=== PATIENT | female | born 1990 | race Caucasian/White ===

== ENCOUNTER 2020-04-17 01:42 | Inpatient (IN) | payer BC ==
[2020-04-17] MEDS ORDERED: Sodium Chloride 0.9% 2.5 ML Syringe FLUSH PRN (19:40)
[2020-04-17] MEDS ORDERED: Misoprostol 25 MCG (1/4 of 100 MCG) Tab VAG PRN (19:40)
[2020-04-17] MEDS ORDERED: Misoprostol 200 MCG Tab PO PRN (19:40)
[2020-04-17] MEDS ORDERED: Lidocaine 1% 50 ML MDV INJECT PRN (19:40)
[2020-04-17] MEDS ORDERED: Ondansetron 4 MG/2 ML SDV IVPUSH PRN (19:40)
[2020-04-17] MEDS ORDERED: Terbutaline 1 MG/ML SDV SUBCUT PRN (19:40)
[2020-04-17] MEDS ORDERED: Tranexamic Acid 1,000 MG in Sodium Chloride 0.9% 100 ML IV PRN (19:40)
[2020-04-17] MEDS ORDERED: Sodium Chloride 0.9% 10 ML SDV IV PRN (19:40)
[2020-04-17] MEDS ORDERED: Methylergonovine 0.2 MG/1 ML Amp IM PRN (19:40)
[2020-04-17] MEDS ORDERED: Sodium Chloride 0.9% 10 ML Syringe FLUSH PRN (19:40)
[2020-04-17] MEDS ORDERED: Water For Irrigation,Sterile 1,000 ML Container IRR PRN (19:40)
[2020-04-17] MEDS ORDERED: Carboprost Tromethamine 250 MCG/1 ML Amp IM PRN (19:40)
[2020-04-17] MEDS ORDERED: Nalbuphine 10 MG/1 ML Vial IVPUSH PRN (19:40)
[2020-04-17] MEDS ORDERED: Oxytocin/0.9 % Sodium Chloride 30 UNIT/500 ML BAG IV SCH ×2 (19:45)
[2020-04-17] MEDS: Misoprostol 25 MCG (1/4 of 100 MCG) Tab VAG PRN (22:43)
[2020-04-18] MEDS: Misoprostol 25 MCG (1/4 of 100 MCG) Tab VAG PRN ×2 (04:44→08:49)
[2020-04-18] MEDS: Lactated Ringers 1,000 ML IV SCH ×3 (11:43→20:08)
[2020-04-18] MEDS: Butorphanol 1 MG/ML SDV IVPUSH PRN ×2 (14:28→16:49)
[2020-04-18] MEDS ORDERED: fentaNYL 100 MCG/2 ML SDV ONE (19:16)
[2020-04-18] MEDS ORDERED: Ropivacaine HCl/PF 100 ML ONE (19:16)
--- NOTE | 2020-04-18 19:40 | PCM.PREANE ---
Preanesthetic Assessment - Anesthesia/Transfusion/Family Hx Anesthesia History: Prior Anesthesia Without Reaction Family History of Anesthesia Reaction: No Transfusion History: No Prior Transfusion(s) Type of Transfusion Reactions: Reports: Unknown - Review of Systems Neurological: Weakness (Hx MS) - Physical Assessment NPO Status Date: 04/18/20 NPO Status Time: 08:00 Height: 1.75 m Weight: 142.882 kg ASA Class: 2 Thyro-Mental Finger Breadths: 3 Mouth Opening Finger Breadths: 3 - Lab Values: Laboratory Last Values WBC 9.74 K/uL (4.0-11.0) 04/17/20 22:09 RBC 4.03 M/uL (4.30-5.90) L 04/17/20 22:09 Hgb 12.3 g/dL (12.0-16.0) 04/17/20 22:09 Hct 36.7 % (36.0-46.0) 04/17/20 22:09 MCV 91.1 fL (80.0-98.0) 04/17/20 22:09 MCH 30.5 pg (27.0-32.0) 04/17/20 22:09 MCHC 33.5 g/dL (31.0-37.0) 04/17/20 22:09 RDW Std Deviation 46.4 fl (28.0-62.0) 04/17/20 22:09 RDW Coeff of Ena 14 % (11.0-15.0) 04/17/20 22:09 Plt Count 239 K/uL (150-400) 04/17/20 22:09 MPV 10.90 fL (7.40-12.00) 04/17/20 22:09 Nucleated RBC % 0.0 /100WBC 04/17/20 22:09 Nucleated RBCs # 0 K/uL 04/17/20 22:09 Membrane Rupture POSITIVE 04/18/20 16:40 SARS-CoV-2 RNA (TAVO) NEGATIVE (NEGATIVE) 04/17/20 19:30 Blood Type A NEGATIVE 04/17/20 22:09 Antibody Screen NEGATIVE 04/17/20 22:09 - Allergies Allergies/Adverse Reactions: Allergies Allergy/AdvReac Type Severity Reaction Status Date / Time No Known Allergies Allergy Verified 08/11/17 19:28 - Acknowledgements Anesthesia Type Planned: Epidural Pt an Appropriate Candidate for the Planned Anesthesia: Yes Alternatives and Risks of Anesthesia Discussed w Pt/Guardian: Yes Pt/Guardian Understands and Agrees with Anesthesia Plan: Yes PreAnesthesia Questionnaire - Past Health History Medical/Surgical History: Denies Medical/Surgical History HEENT History: Reports: None Cardiovascular History: Reports: None Respiratory History: Reports: None Gastrointestinal History: Reports: None Genitourinary History: Reports: None OPERATOR VACUUM History: Reports: None Musculoskeletal History: Reports: None Neurological History: Reports: MS Psychiatric History: Reports: None Endocrine/Metabolic History: Reports: None Hematologic History: Reports: None Immunologic History: Reports: None Oncologic (Cancer) History: Reports: None Dermatologic History: Reports: None - Infectious Disease History Infectious Disease History: Reports: Chicken Pox - Past Surgical History Head Surgeries/Procedures: Reports: None Cardiovascular Surgical History: Reports: None Respiratory Surgical History: Reports: None GI Surgical History: Reports: None Female Surgical History: Reports: None Endocrine Surgical History: Reports: None Neurological Surgical History: Reports: None Musculoskeletal Surgical History: Reports: None Oncologic Surgical History: Reports: None Dermatological Surgical History: Reports: None - SUBSTANCE USE Tobacco Use Status *Q: Never Tobacco User Second Hand Smoke Exposure: No Recreational Drug Use History: Yes Recreational Drug Type: Reports: Marijuana/Hashish - HOME MEDS Home Medications: Home Meds Control 08/11/17 [History] Cetirizine HCl [Zyrtec] 10 mg PO DAILY 08/11/17 [History] metFORMIN [Glucophage XR] 500 mg PO BIDMEALS 08/11/17 [History] Aspirin 04/17/20 [History] Biotin 04/17/20 [History] Cyanocobalamin (Vitamin B12) [Vitamin B12] 04/17/20 [History] Cyanocobalamin/Folic Acid [Vitamin J69-Sqaia Acid] 04/17/20 [History] Folic Acid 04/17/20 [History] Pnv #30/Iron Carb&Aspg/Fa/Om3 [OB Complete with DHA Softgel] 04/17/20 [History] Vit D3/Vit K2/Calc Frutoborate [Move Free Agfkq-[id number]-K6-D3] 04/17/20 [History] - CURRENT (IN HOUSE) MEDS Current Meds: Current Medications Butorphanol Tartrate (Stadol) 1 mg IVPUSH Q1H PRN PRN Reason: Pain Last Admin: 04/18/20 16:49 Dose: 1 mg Documented by: Carboprost Tromethamine (Hemabate Ds) 250 mcg IM ASDIRECTED PRN PRN Reason: Post Hemorrhage Oxytocin/Sodium Chloride (Oxytocin 30 Unit/500 Ml-Ns) 30 unit in 500 mls @ 999 mls/hr IV TITRATE IVORY Tranexamic Acid 1,000 mg/ (Sodium Chloride) 110 mls @ 660 mls/hr IV ONETIME PRN PRN Reason: Bleeding Oxytocin/Sodium Chloride (Oxytocin 30 Unit/500 Ml-Ns) 30 unit in 500 mls @ 2 mls/hr IV TITRATE IVORY; Protocol Last Titration: 04/18/20 14:00 Dose: 12 munits/min, 12 mls/hr Documented by: Lactated Ringer's (Ringers, Lactated) 1,000 mls @ 150 mls/hr IV ASDIRECTED IVORY Last Admin: 04/18/20 16:54 Dose: 150 mls/hr Documented by: Lidocaine HCl (Xylocaine 1%) 50 ml INJECT ONETIME PRN PRN Reason: Laceration repair Methylergonovine Maleate (Methergine) 0.2 mg IM ASDIRECTED PRN PRN Reason: Post Hemorrhage Misoprostol (Cytotec) 200 mcg PO ONETIME PRN PRN Reason: Post Hemorrhage Misoprostol (Cytotec) 25 mcg VAG ONETIME PRN PRN Reason: Cervical Ripening Misoprostol (Cytotec) 25 mcg VAG Q4H PRN PRN Reason: Cervical Ripening Last Admin: 04/18/20 08:49 Dose: 25 mcg Documented by: Nalbuphine HCl (Nubain) 10 mg IVPUSH Q1H PRN PRN Reason: Pain (severe 7-10) Ondansetron HCl (Zofran) 4 mg IVPUSH Q6H PRN PRN Reason: Nausea/Vomiting Last Admin: 04/18/20 15:55 Dose: 4 mg Documented by: Sodium Chloride (Saline Flush) 10 ml FLUSH ASDIRECTED PRN PRN Reason: Keep Vein Open Sodium Chloride (Saline Flush) 2.5 ml FLUSH ASDIRECTED PRN PRN Reason: Keep Vein Open Sodium Chloride (Normal Saline) 10 ml IV ASDIRECTED PRN PRN Reason: IV Use Sterile Water (Sterile Water For Irrigation) 1,000 ml IRR ASDIRECTED PRN PRN Reason: delivery Terbutaline Sulfate (Brethine) 0.25 mg SUBCUT ASDIRECTED PRN PRN Reason: Tacysystole Discontinued Medications Fentanyl (Sublimaze) Confirm Administered Dose 100 mcg .ROUTE .STBest Teacher-MED ONE Stop: 04/18/20 19:17 Ropivacaine (Naropin 0.2%) Confirm Administered Dose 100 mls @ as directed .ROUTE .STBest Teacher-MED ONE Stop: 04/18/20 19:17
--- NOTE | 2020-04-18 19:44 | PCM.PRNOTE ---
- Free Text/Narrative Note: Anes Note Patient requests epidural for L&D. Sitting position. Level L3-L4 midline approach. Sterile technique. Chloraprep scrub to lumbar area. Sitting position. Sterile fenestrated drape applied. Epidural space easily achieved single attempt with ease using POOJA technique. POOJA at 5 cm. Cath threaded 6 cm with ease. Cath secured at skin using sterile clear adhesive dressing. 193 test 3 cc 1.5% lido with epi negative. 1934 LOad 10 cc 0.2% ropiviciane with 1 mcg cc fentanyl in slow divided doses. 1941 Pump started with 90 c same solution. Rate is 8 cc hr with 6 cc q 20 min bolus. Sterling well. Abdirizak with patient [phone] Evan Melgar EDUCATIONAL INTERPRETER
[2020-04-19] MEDS ORDERED: Benzocaine/Menthol 20%-0.5% Spray 78 GM Cannister TOP PRN (02:07)
[2020-04-19] MEDS ORDERED: Witch Hazel Medicated Pads 40/Jar TOP PRN (02:07)
[2020-04-19] MEDS ORDERED: oxyCODONE 5 MG Tab PO PRN (02:07)
[2020-04-19] MEDS ORDERED: Ibuprofen 400 MG Tab PO PRN (02:07)
[2020-04-19] MEDS ORDERED: Bisacodyl 10 MG Supp RECTAL PRN (02:07)
[2020-04-19] MEDS ORDERED: Lanolin 100% Cream 7 GM Tube TOP PRN (02:07)
[2020-04-19] MEDS ORDERED: Acetaminophen 500 MG Tab PO PRN ×2 (02:07)
--- NOTE | 2020-04-19 02:17 | PCM.OPNOTE ---
- General Post-Op/Procedure Note Date of Surgery/Procedure: 04/19/20 Operative Procedure(s): /2nd MLE repaired Findings: Viable female APGARs 8, 9 weight 4590 gm. Spontaneous delivery intact placenta with 3V cord Pre Op Diagnosis: 39/5 week IUP. Elective IOL-maternal obesity Post-Op Diagnosis: Same Anesthesia Technique: Epidural Primary Surgeon: Nancy Martin EBL in mLs: 250 Complications: none known Condition: Good Free Text/Narrative:: Dictation [id number]
[2020-04-19] MEDS: Docusate Sodium 100 MG Cap PO PRN ×2 (06:49→20:14)
--- NOTE | 2020-04-19 07:17 | PCM48HPAN ---
Post Anesthesia Note - EVALUATION WITHIN 48HRS OF ANESTHETIC Vital Signs in Normal Range: Yes Patient Participated in Evaluation: Yes Respiratory Function Stable: Yes Airway Patent: Yes Cardiovascular Function Stable: Yes Hydration Status Stable: Yes Pain Control Satisfactory: Yes Nausea and Vomiting Control Satisfactory: Yes Mental Status Recovered: Yes Vital Signs: Last Vital Signs Temp 36.3 C 04/19/20 04:34 Pulse 81 04/19/20 04:34 Resp 18 04/19/20 04:34 BP 119/80 04/19/20 04:34 Pulse Ox 91 L 04/19/20 04:34
[2020-04-19] MEDS: Ibuprofen 800 MG Tab PO PRN ×2 (08:35→20:14)
--- NOTE | 2020-04-19 09:56 | OR ---
SURGEON: Nancy Martin M.D. DATE OF PROCEDURE: 04/19/2020 PREOPERATIVE DIAGNOSES: 1. 39 and 5/7 week intrauterine . 2. Elective induction of labor for maternal obesity. POSTOPERATIVE DIAGNOSES: 1. 39 and 5/7 week intrauterine . 2. Elective induction of labor for maternal obesity. PROCEDURES: Spontaneous vaginal delivery, second-degree midline episiotomy repair. PRIMARY SURGEON: Nancy Martin M.D. ANESTHESIA: Epidural. ESTIMATED BLOOD LOSS: 250 mL. COMPLICATIONS: None known. FINDINGS: Viable female, score 8 at one minute and 9 at five minutes. Weight of 4590 g. Spontaneous delivery, intact placenta with 3-vessel cord. DISPOSITION: to nursery, Mom in LDRP. PROCEDURE DETAILS: Domenica is a 29-year-old G1, P0, at 39 and 3/7 weeks gestational age upon presentation for elective induction of labor. She was initially evaluated. Category 1 heart tones were observed and was found to be fingertip thick and -3 station, therefore, initiated on Cytotec ripening. Underwent 3 doses of Cytotec. By the following morning, was found to be 3 cm, 60% effaced at -2 station, therefore transitioned to Pitocin. Made slow progress through the afternoon hours of 04/18/2020, had spontaneous rupture of membranes shortly before 2 p.m. On the early evening of 04/19/2020, she was found to have forebag. This was ruptured with an IUPC placed. The patient was becoming increasingly uncomfortable at this juncture and underwent regional anesthesia in the form of epidural, became more comfortable and continued to progress more rapidly thereafter. Shortly after midnight, she was found to be complete, 100% effaced, +1 station, began pushing efforts, pushed for approximately 45 minutes, and I was called for delivery. Upon my arrival, patient was placed in modified dorsal lithotomy position, was prepped and draped in usual aseptic manner. Continued with pushing efforts, was able to deliver to a +3 station. The perineum was very tight, and with pushing efforts, difficulty delivering past the perineum with heart tones decelerating into the 60s; therefore, an episiotomy was created, and with the next contraction, the patient was able to deliver infant's head atraumatically spontaneously, followed by anterior shoulder, posterior shoulder, and remainder of body. Loose nuchal cord x1 was reduced manually. 's oropharynx and nares were bulb suctioned. Infant was handed off to her mother with attending nursing staff at her side. After a delay, cord was clamped x2 and cut. Cord arterial, cord venous, cord blood sampling obtained. Light pressure was applied while the placenta was delivered spontaneously intact. Vigorous fundal uterine massage was then applied while 30 units of Pitocin delivered in 500 mL of IV fluid. Upon inspection of cervix, vaginal sidewalls, and perineum, there was found to be second-degree midline episiotomy. This was repaired using 3-0 Vicryl in the usual fashion. Hemostasis appeared evident. Sponge count, instrument count, needle count was correct. The patient remained in LDRP, to nursery. MYKEL / ESA /[id number]
[2020-04-20] MEDS: Ibuprofen 800 MG Tab PO PRN (08:05)
[2020-04-20] MEDS: Docusate Sodium 100 MG Cap PO PRN (08:05)
--- NOTE | 2020-04-20 08:21 | PCM.PNPP ---
- General Info Date of Service: 04/20/20 Subjective Update: Resting comfortably in bed, holding infant. Pain well controlled. Lochia decreasing. Ambulating and voiding without difficulty. with formula supplementation. - General Info Date of Service: 04/20/20 - Patient Data Vital Signs - Most Recent: Last Vital Signs Temp 97.9 F 04/20/20 07:57 Pulse 80 04/20/20 07:57 Resp 18 04/20/20 07:57 BP 112/68 04/20/20 07:57 Pulse Ox 98 04/20/20 07:57 Weight - Most Recent: 315 lb Lab Results - Last 24 Hours: Laboratory Results - last 24 hr 04/19/20 04/20/20 Range/Units 02:40 06:15 Hgb 11.7 L (12.0-16.0) g/dL Hct 35.4 L (36.0-46.0) % Antibody Screen NEGATIVE Screen NEGATIVE (NEGATIVE) RhIG Candidate? YES Rhogam Indicated YES, BABY RH POS H Med Orders - Current: Current Medications Acetaminophen (Tylenol Extra Strength) 500 mg PO Q4H PRN PRN Reason: Pain Acetaminophen (Tylenol Extra Strength) 1,000 mg PO Q4H PRN PRN Reason: Pain Last Admin: 04/19/20 08:36 Dose: 1,000 mg Documented by: Benzocaine/Menthol (Dermoplast Pain Relief 20%-0.5% [place]) 78 gm TOP ASDIRECTED PRN PRN Reason: Perineal Comfort Measure Last Admin: 04/19/20 03:45 Dose: 1 canister Documented by: Bisacodyl (Dulcolax) 10 mg RECTAL ONETIME PRN PRN Reason: Constipation Butorphanol Tartrate (Stadol) 1 mg IVPUSH Q1H PRN PRN Reason: Pain Last Admin: 04/18/20 16:49 Dose: 1 mg Documented by: Carboprost Tromethamine (Hemabate Ds) 250 mcg IM ASDIRECTED PRN PRN Reason: Post Hemorrhage Docusate Sodium (Colace) 100 mg PO BID PRN PRN Reason: Constipation Last Admin: 04/20/20 08:05 Dose: 100 mg Documented by: Emollient Ointment (Lansinoh Hpa) 0 gm TOP ASDIRECTED PRN PRN Reason: Sore Nipples Last Admin: 04/19/20 03:44 Dose: 7 gm Documented by: Oxytocin/Sodium Chloride (Oxytocin 30 Unit/500 Ml-Ns) 30 unit in 500 mls @ 999 mls/hr IV TITRATE IVORY Tranexamic Acid 1,000 mg/ (Sodium Chloride) 110 mls @ 660 mls/hr IV ONETIME PRN PRN Reason: Bleeding Oxytocin/Sodium Chloride (Oxytocin 30 Unit/500 Ml-Ns) 30 unit in 500 mls @ 2 mls/hr IV TITRATE IVORY; Protocol Last Titration: 04/19/20 01:42 Dose: 999 munits/min, 999 mls/hr Documented by: Lactated Ringer's (Ringers, Lactated) 1,000 mls @ 150 mls/hr IV ASDIRECTED IVORY Last Infusion: 04/19/20 01:42 Dose: 0 mls/hr Documented by: Ibuprofen (Motrin) 400 mg PO Q4H PRN PRN Reason: Pain Ibuprofen (Motrin) 800 mg PO Q6H PRN PRN Reason: Pain Last Admin: 04/20/20 08:05 Dose: 800 mg Documented by: Lidocaine HCl (Xylocaine 1%) 50 ml INJECT ONETIME PRN PRN Reason: Laceration repair Methylergonovine Maleate (Methergine) 0.2 mg IM ASDIRECTED PRN PRN Reason: Post Hemorrhage Misoprostol (Cytotec) 200 mcg PO ONETIME PRN PRN Reason: Post Hemorrhage Misoprostol (Cytotec) 25 mcg VAG ONETIME PRN PRN Reason: Cervical Ripening Misoprostol (Cytotec) 25 mcg VAG Q4H PRN PRN Reason: Cervical Ripening Last Admin: 04/18/20 08:49 Dose: 25 mcg Documented by: Nalbuphine HCl (Nubain) 10 mg IVPUSH Q1H PRN PRN Reason: Pain (severe 7-10) Ondansetron HCl (Zofran) 4 mg IVPUSH Q6H PRN PRN Reason: Nausea/Vomiting Last Admin: 04/18/20 15:55 Dose: 4 mg Documented by: Oxycodone HCl (Oxycodone) 5 mg PO Q2H PRN PRN Reason: Pain Sodium Chloride (Saline Flush) 10 ml FLUSH ASDIRECTED PRN PRN Reason: Keep Vein Open Sodium Chloride (Saline Flush) 2.5 ml FLUSH ASDIRECTED PRN PRN Reason: Keep Vein Open Sodium Chloride (Normal Saline) 10 ml IV ASDIRECTED PRN PRN Reason: IV Use Sterile Water (Sterile Water For Irrigation) 1,000 ml IRR ASDIRECTED PRN PRN Reason: delivery Terbutaline Sulfate (Brethine) 0.25 mg SUBCUT ASDIRECTED PRN PRN Reason: Tacysystole Witch Nirmala (Tucks) 1 pad TOP ASDIRECTED PRN PRN Reason: comfort care Last Admin: 04/19/20 03:45 Dose: 1 tub Documented by: Discontinued Medications Fentanyl (Sublimaze) Confirm Administered Dose 100 mcg .ROUTE .STK-MED ONE Stop: 04/18/20 19:17 Last Admin: 04/19/20 21:28 Dose: Not Given Documented by: Ropivacaine (Naropin 0.2%) Confirm Administered Dose 100 mls @ as directed .ROUTE .STK-MED ONE Stop: 04/18/20 19:17 Last Admin: 04/19/20 21:28 Dose: Not Given Documented by: - Infant Interaction Disposition, : [place] at Bedside Feeding: Attempted ; Nursed Fair/Poor, Bottle Fed Support Person: Significant Other - Recovery Exam Fundal Tone: Firm Fundal Level: At Umbilicus Fundal Placement: Midline Lochia Amount: Scant Lochia Color: Rubra/Red Perineum Description: Other (see below) Other Perinuem Description: 2nd degree laceration Episiotomy/Laceration: Approximated Bladder Status: Voiding Urinary Elimination: Voided - Exam General: Alert Lungs: Normal Respiratory Effort Cardiovascular: Regular Rate GI/Abdominal Exam: Soft, Non-Tender Extremities: Non-Tender, Pedal Edema (trace) Skin: Warm, Dry, Intact Wound/Incisions: Healing Well Neurological: No New Focal Deficit Psy/Mental Status: Normal Mood - Problem List Review Problem List Initiated/Reviewed/Updated: Yes - Assessment Assessment:: 29 year old PPD 1 s/p spontaneous vaginal delivery - Plan Plan:: Meeting milestones. Desires minipill for contraception, Rx sent to patient's pharmacy. Anticipate discharge today pending maternal/ status. Reviewed discharge instructions.
== END 2020-04-20 13:25 | disposition home or self-care (01) | DRG 560 ==
LOC: MW.OB 01:42 → OBSVTOIN 04-19 01:42 → MW.OB 04-19 04:23
PROVIDERS: ADMIT Obstetrics & Gynecology; ATTEND Obstetrics & Gynecology
PROC: 10E0XZZ Delivery of Products of Conception, External Approach (ICD-10-PCS; principal; 2020-04-19)
PROC: 10H07YZ Insertion of Other Device into Products of Conception, Via Natural or Artificial Opening (ICD-10-PCS; 2020-04-19)
PROC: 0W8NXZZ Division of Female Perineum, External Approach (ICD-10-PCS; 2020-04-19)
PROC: 3E0R3BZ Introduction of Anesthetic Agent into Spinal Canal, Percutaneous Approach (ICD-10-PCS; 2020-04-19)
PROC: 00HU33Z Insertion of Infusion Device into Spinal Canal, Percutaneous Approach (ICD-10-PCS; 2020-04-19)
DX: O99.824 Streptococcus B carrier state complicating childbirth (principal); Z37.0 Single live birth; Z3A.39 39 weeks gestation of pregnancy; O69.81X0 Labor and delivery complicated by cord around neck, without compression, not applicable or unspecified; Z20.822 Contact with and (suspected) exposure to COVID-19
CPT/HCPCS: 01967; 36415; 36430; 51702; 59025; 59409; 82803; 84112; 85014; 85018; 85027; 85460; 86592; 86850; 86900; 86901; A9270-GY; J0595; J2405; J2590; J2792; J2795; J3010; J7120; U0002